=== PATIENT | male | born 1945 | race Caucasian/White ===

== ENCOUNTER 2021-01-30 10:22 | Outpatient (CLI) | payer MEDICARE | END 2021-01-30 23:59 | disposition home or self-care (01) | LOC: MSC 10:22 | PROVIDERS: ATTEND Internal Medicine | DX: I12.9 Hypertensive chronic kidney disease with stage 1 through stage 4 chronic kidney disease, or unspecified chronic kidney disease (principal); N18.9 Chronic kidney disease, unspecified; Z87.891 Personal history of nicotine dependence; E83.9 Disorder of mineral metabolism, unspecified; E03.9 Hypothyroidism, unspecified; Z79.890 Hormone replacement therapy; E78.5 Hyperlipidemia, unspecified; Z87.09 Personal history of other diseases of the respiratory system; N40.0 Benign prostatic hyperplasia without lower urinary tract symptoms; C61 Malignant neoplasm of prostate; Z79.899 Other long term (current) drug therapy ==

== ENCOUNTER 2021-03-25 08:56 | Outpatient (CLI) | payer MEDICARE | END 2021-03-25 23:59 | disposition home or self-care (01) | LOC: MSC 08:56 | PROVIDERS: ATTEND Internal Medicine | DX: R63.5 Abnormal weight gain (principal); Z68.26 Body mass index [BMI] 26.0-26.9, adult; I12.9 Hypertensive chronic kidney disease with stage 1 through stage 4 chronic kidney disease, or unspecified chronic kidney disease; N18.9 Chronic kidney disease, unspecified; E83.9 Disorder of mineral metabolism, unspecified; E03.9 Hypothyroidism, unspecified; Z79.890 Hormone replacement therapy; T67.5XXD Heat exhaustion, unspecified, subsequent encounter; N40.0 Benign prostatic hyperplasia without lower urinary tract symptoms ==

== ENCOUNTER 2021-06-26 08:51 | Outpatient (CLI) | payer MEDICARE | END 2021-06-26 23:59 | disposition home or self-care (01) | LOC: MSC 08:51 | PROVIDERS: ATTEND Internal Medicine | DX: Z51.89 Encounter for other specified aftercare (principal); I12.9 Hypertensive chronic kidney disease with stage 1 through stage 4 chronic kidney disease, or unspecified chronic kidney disease; N18.9 Chronic kidney disease, unspecified; R63.5 Abnormal weight gain; Z68.27 Body mass index [BMI] 27.0-27.9, adult; E03.9 Hypothyroidism, unspecified; Z79.890 Hormone replacement therapy; E83.9 Disorder of mineral metabolism, unspecified; E55.9 Vitamin D deficiency, unspecified; E78.5 Hyperlipidemia, unspecified; N40.0 Benign prostatic hyperplasia without lower urinary tract symptoms; Z87.09 Personal history of other diseases of the respiratory system; Z87.891 Personal history of nicotine dependence; Z79.899 Other long term (current) drug therapy ==

== ENCOUNTER 2021-09-30 08:53 | Outpatient (CLI) | payer MEDICARE | END 2021-09-30 23:59 | disposition home or self-care (01) | LOC: MSC 08:53 | PROVIDERS: ATTEND Internal Medicine | DX: I12.9 Hypertensive chronic kidney disease with stage 1 through stage 4 chronic kidney disease, or unspecified chronic kidney disease (principal); N18.9 Chronic kidney disease, unspecified; E83.9 Disorder of mineral metabolism, unspecified; E55.9 Vitamin D deficiency, unspecified; R63.5 Abnormal weight gain; Z68.26 Body mass index [BMI] 26.0-26.9, adult; E03.9 Hypothyroidism, unspecified; Z79.890 Hormone replacement therapy; E78.5 Hyperlipidemia, unspecified; N40.0 Benign prostatic hyperplasia without lower urinary tract symptoms ==

== ENCOUNTER 2022-01-23 14:00 | Outpatient (CLI) | payer MEDICARE | END 2022-01-23 23:59 | disposition home or self-care (01) | LOC: MSC 14:00 | PROVIDERS: ATTEND Internal Medicine | DX: I12.9 Hypertensive chronic kidney disease with stage 1 through stage 4 chronic kidney disease, or unspecified chronic kidney disease (principal); N18.9 Chronic kidney disease, unspecified; M54.10 Radiculopathy, site unspecified; E83.9 Disorder of mineral metabolism, unspecified; R63.5 Abnormal weight gain; E03.9 Hypothyroidism, unspecified; Z79.890 Hormone replacement therapy; E78.5 Hyperlipidemia, unspecified; N40.0 Benign prostatic hyperplasia without lower urinary tract symptoms ==